=== PATIENT | female | born 1995 ===

== ENCOUNTER → 2024-10-13 16:56 | Outpatient (CLI) | payer OTHER, SELFPAY ==
--- NOTE | 2024-10-13 16:58 | DI.RAD.S_ITS ---
PROCEDURE: XR FOOT LT MIN 3V INDICATIONS: Left heel pain TECHNIQUE: 3 views of the foot were acquired. COMPARISON: None. FINDINGS: Bones: Moderate hallux valgus. Mild pes planus and 2nd through 5th digit hammertoe deformities noted. Joints: The joint spaces are normal in width and alignment without arthritic change. Soft tissues: Tiny calcification lateral to the 1st MTT joint may represent a remote avulsion fracture. Old mild forefoot midfoot soft tissue swelling IMPRESSION: Chronic findings as described. No cause identified for left heel pain Dictated by: Tima Peña M.D. on 10/15/2024 at 11:48 Approved by: Tima Peña M.D. on 10/15/2024 at 11:49
== END ==
LOC: RAD 16:57
PROVIDERS: Referring Provider Nurse Practitioner Family; Visit Provider Nurse Practitioner Family
DX: M20.12 Hallux valgus (acquired), left foot (principal); M79.672 Pain in left foot; M21.42 Flat foot [pes planus] (acquired), left foot; M20.42 Other hammer toe(s) (acquired), left foot; M79.89 Other specified soft tissue disorders
CPT/HCPCS: 73630